=== PATIENT | male | born 1970 | race Caucasian/White ===

== ENCOUNTER 2022-09-04 04:30 | Emergency (ER) | payer BC ==
[2022-09-04 04:38] VITALS: TEMP 98.6
--- NOTE | 2022-09-04 04:52 | ED ---
General Adult HPI - General Source: patient, EMS Mode of arrival: EMS Limitations: no limitations <Ghulam Beckford - Last Filed: 09/04/22 06:26> <Tye Escobar - Last Filed: 09/04/22 09:33> - General Chief complaint: Extremity Injury, Lower Stated complaint: Right Knee Infection Time Seen by Provider: 09/04/22 04:46 - History of Present Illness Initial comments: Dictation was produced using [employer] dictation software. please excuse any grammatical, word or spelling errors. Chief Complaint: 52-year-old male sent in from outside hospital for concerns of septic arthritis History of Present Illness: Is 52-year-old male transferred from [facility]. Patient presents with acute knee pain. States that his symptoms began in the middle the night while he was sleeping. Patient has any fever or chills. Denies any history of gout. Denies any history of septic joint. He was seen at [facility] where he was evaluated. According to Dr. Plata. They did not have labs available to do a stat if fluid analysis. Patient is transferred to our hospital by request of the patient. They did not tap the joint and started sent the patient to us. Patient is a history of diabetes. States that his pain significantly resolved after having been given Dilaudid. The ROS documented in this emergency department record has been reviewed and confirmed by me. Those systems with pertinent positive or negative responses have been documented in the HPI. All other systems are other negative and/or noncontributory. (Ghulam Beckford) - Related Data Previous Rx's Medication Instructions Recorded Colchicine 0.6 mg PO ONCE #1 capsule 09/04/22 Allergies Allergy/AdvReac Type Severity Reaction Status Date / Time No Known Allergies Allergy Verified 09/04/22 06:02 Review of Systems ROS Other: All systems not noted in ROS Statement are negative. <Ghulam Beckford - Last Filed: 09/04/22 06:26> ROS Other: All systems not noted in ROS Statement are negative. <Tye Escobar - Last Filed: 09/04/22 09:33> ROS Statement: Those systems with pertinent positive or pertinent negative responses have been documented in the HPI. Past Medical History Past Medical History: Diabetes Mellitus, Neurologic Disorder History of Any Multi-Drug Resistant Organisms: None Reported Past Psychological History: No Psychological Hx Reported Smoking Status: Never smoker Past Alcohol Use History: Occasional Past Drug Use History: None Reported <Ghulam Beckford - Last Filed: 09/04/22 06:26> General Exam Limitations: no limitations <Ghulam Beckford - Last Filed: 09/04/22 06:26> - General Exam Comments Initial Comments: PHYSICAL EXAM: General Impression: Alert and oriented x3, not in acute distress HEENT: Normocephalic atraumatic, extra-ocular movements intact, pupils equal and reactive to light bilaterally, mucous membranes moist. Cardiovascular: Heart regular rate and rhythm Chest: Able to complete full sentences, no retractions, no tachypnea Musculoskeletal: Pulses present and equal in all extremities, no peripheral edema Right knee: Warm mildly erythematous area able to bend patient's knee with some pain Motor: no focal deficits noted Neurological: CN II-XII grossly intact, no focal motor or sensory deficits noted Skin: Intact with no visualized rashes Psych: Normal affect and mood (Ghulam Beckford) Course Vital Signs 09/04/22 09/04/22 04:32 06:22 Temperature 98.6 F Pulse Rate 96 88 Respiratory 16 16 Rate Blood Pressure 166/93 135/81 O2 Sat by Pulse 97 97 Oximetry Procedures - Joint Aspiration/Injection Consent Obtained: verbal consent, emergent situation Indications: R/O septic arthritis Side of Body: right Joint Aspirated: knee Ultrasound Guidance: No Skin Prep: Chlorhexidine Needle Size Used: 18G Syringe Size Used: 10cc Fluid Obtained: turbid Total Fluid Obtained (mls): 4 Patient Tolerated Procedure: well <Ghulam Beckford - Last Filed: 09/04/22 06:26> Medical Decision Making <Ghulam Beckford - Last Filed: 09/04/22 06:26> - Lab Data Result diagrams: 09/04/22 06:15 09/04/22 06:15 <Tye Escobar - Last Filed: 09/04/22 09:33> - Medical Decision Making Was pt. sent in by a medical professional or institution (, PA, [employer], urgent care, hospital, or longterm...) When possible be specific @ -From outside hospital Did you speak to anyone other than the patient for history (EMS, parent, family, police, friend...)? What history was obtained from this source @ -Some history obtained from transferring physician, Dr. Plata Did you review nursing and triage notes (agree or disagree)? Why? @ -I reviewed and agree with nursing and triage notes Were old charts reviewed (outside hosp., previous admission, EMS record, old EKG, old radiological studies, urgent care reports/EKG's, longterm records)? Report findings @ -No old charts were reviewed Differential Diagnosis (chest pain, altered mental status, abdominal pain women, abdominal pain men, vaginal bleeding, musculoskeletal, weakness, fever, dyspnea, syncope, headache, dizziness, GI bleed, back pain, seizure, CVA, palpatations, mental health)? @ -Differential Musculoskeletal: Muscular strain, contusion, ligament sprain, fracture, arthritis, septic arthrit is, bursitis, cellulitis, muscle spasm, nerve compression, DVT, arterial occlusion, herpes zoster, electrolyte abnormality, tumor.... This is not meant to be in all inclusive list EKG interpreted by me (3pts min.). @ -None done X-rays interpreted by me (1pt min.). @ -None done CT interpreted by me (1pt min.). @ -None done U/S interpreted by me (1pt. min.). @ -None done What testing was considered but not performed or refused? (CT, X-rays, U/S, labs)? Why? @ -None What meds were considered but not given or refused? Why? @ -None Did you discuss the management of the patient with other professionals (professionals i.e. , PA, [employer], lab, RT, psych nurse, social insurance analyst, care tech, teacher, transit police officer, patient case coordinator)? Give summary @ -No Was smoking cessation discussed for >3mins.? @ -No Was critical care preformed (if so, how long)? @ -No Were there social determinants of health that impacted care today? How? (Homelessness, low income, unemployed, alcoholism, drug addiction, transportation, low edu. Level, literacy, decrease access to med. care, fci, rehab)? @ -No Was there de-escalation of care discussed even if they declined (Discuss DNR or withdrawal of care, Hospice)? DNR status @ -No What co-morbidities impacted this encounter? (DM, HTN, Smoking, COPD, CAD, Cancer, CVA, ARF, Chemo, Hep., AIDS, mental health diagnosis, sleep apnea, morbid obesity)? @ -None Was patient admitted / discharged? Hospital course, mention meds given and route, prescriptions, significant lab abnormalities, going to OR and other pertinent info. @ -52-year-old male transferred from [facility] for concerns of septic knee. Patient states that his knee pain has been ongoing for several hours. Started hurting during sleep. Patient has any constitutional symptoms. Vital signs are stable. Physical examination shows mildly erythematous knee. Not significantly symptomatic. Knee is able to be manipulated without any significant pain. Nonetheless knee aspiration was performed showing mildly cloudy fluid not obviously purulent. Pending lab analysis. No obvious indication for antibiotic administration at this time. Undiagnosed new problem with uncertain prognosis? @ -No Drug Therapy requiring intensive monitoring for toxicity (Heparin, Nitro, Insulin, Cardizem)? @ -No Were any procedures done? @ -No Diagnosis/symptom? Acute, or Chronic, or Acute on Chronic? Uncomplicated (without systemic symptoms) or Complicated (systemic symptoms)? @ -1. Acute knee pain Side effects of treatment? @ -No Exacerbation, Progression, or Severe Exacerbation? @ -No Poses a threat to life or bodily function? How? (Chest pain, [place], [place], pneumonia, PE, COPD, DKA, ARF, appy, cholecystitis, CVA, Diverticulitis, Homicidal, Suicidal, threat to staff... and all critical care pts) @ -No Patient care signed out to Dr. Escobar at 7:00 AM (Ghulam Beckford) Was patient admitted / discharged? Hospital course, mention meds given and route, prescriptions, significant lab abnormalities, going to OR and other pertinent info. @ - I spoke with Elidia Judd physician speech and language assistant at [facility] she came over to see the patient she tapped the knee and felt the patient had gout and sent the patient home with a knee immobilizer and I will be prescribing closing. Undiagnosed new problem with uncertain prognosis? @ -No Drug Therapy requiring intensive monitoring for toxicity (Heparin, Nitro, Insu simon, Cardizem)? @ -No Were any procedures done? @ -No Diagnosis/symptom? @ -Gouty arthritis Acute, or Chronic, or Acute on Chronic? @ -Acute Uncomplicated (without systemic symptoms) or Complicated (systemic symptoms)? @ -Uncomplicated Side effects of treatment? @ -No Exacerbation, Progression, or Severe Exacerbation? @ -No Poses a threat to life or bodily function? How? (Chest pain, [place], [place], pneumonia, PE, COPD, DKA, ARF, appy, cholecystitis, CVA, Diverticulitis, Homicidal, Suicidal, threat to staff... and all critical care pts) @ -No (Tye Escobar) - Lab Data Lab Results 09/04/22 09/04/22 Range/Units 06:15 06:15 WBC 9.4 (3.8-10.6) k/uL RBC 5.02 (4.30-5.90) m/uL Hgb 15.8 (13.0-17.5) gm/dL Hct 48.4 (39.0-53.0) % MCV 96.3 (80.0-100.0) fL MCH 31.4 (25.0-35.0) pg MCHC 32.6 (31.0-37.0) g/dL RDW 13.3 (11.5-15.5) % Plt Count 265 (150-450) k/uL MPV 6.9 Neutrophils % 69 % Lymphocytes % 20 % Monocytes % 7 % Eosinophils % 2 % Basophils % 0 % Neutrophils # 6.5 (1.3-7.7) k/uL Lymphocytes # 1.9 (1.0-4.8) k/uL Monocytes # 0.6 (0-1.0) k/uL Eosinophils # 0.2 (0-0.7) k/uL Basophils # 0.0 (0-0.2) k/uL ESR 7 (0-15) mm/hr Sodium 136 L (137-145) mmol/L Potassium 4.8 (3.5-5.1) mmol/L Chloride 103 (98-107) mmol/L Carbon Dioxide 24 (22-30) mmol/L Anion Gap 9 mmol/L BUN 15 (9-20) mg/dL Creatinine 0.85 (0.66-1.25) mg/dL Est GFR (CKD-EPI)AfAm >90 (>60 ml/min/1.73 sqM) Est GFR (CKD-EPI)NonAf >90 (>60 ml/min/1.73 sqM) Glucose 146 H (74-99) mg/dL Calcium 9.0 (8.4-10.2) mg/dL C-Reactive Protein 2.3 H (<1.0) mg/dL Disposition <Ghulam Beckford - Last Filed: 09/04/22 06:26> Is patient prescribed a controlled substance at d/c from ED?: No Time of Disposition: 09:30 <Tye Escobar - Last Filed: 09/04/22 09:33> Clinical Impression: Gouty arthritis of right knee Disposition: HOME SELF-CARE Condition: Good Instructions (If sedation given, give patient instructions): Gout (ED) Prescriptions: Colchicine 0.6 mg PO ONCE #1 capsule Referrals: Gaston Kay MD [STAFF PHYSICIAN] - 1-2 days
[2022-09-04] MEDS ORDERED: MORPHINE SULFATE 4 MG/ML SYRINGE IV STA (06:02)
[2022-09-04 06:26] LABS: Basophils % (A) 0 %; Eosinophils # (A) 0.2 k/uL (0-0.7); Eosinophils % (A) 2 %; HCT 48.4 % (39.0-53.0); HGB 15.8 gm/dL (13.0-17.5); Lymphocytes # (A) 1.9 k/uL (1.0-4.8); Lymphocytes % (A) 20 %; MCH 31.4 pg (25.0-35.0); MCHC 32.6 g/dL (31.0-37.0); MCV 96.3 fL (80.0-100.0); Mean Platelet Volume 6.9; Monocytes # (A) 0.6 k/uL (0-1.0); Monocytes % (A) 7 %; Neutrophils # (A) 6.5 k/uL (1.3-7.7); Neutrophils % (A) 69 %; Platelet Count 265 k/uL (150-450); RBC 5.02 m/uL (4.30-5.90); RDW 13.3 % (11.5-15.5); WBC 9.4 k/uL (3.8-10.6)
[2022-09-04 06:44] LABS: African American GFR (CKD) >90 (>60 ml/min/1.73 sqM); Anion Gap 9 mmol/L; Blood Urea Nitrogen 15 mg/dL (9-20); C Reactive Protein 2.3 mg/dL (<1.0); Carbon Dioxide 24 mmol/L (22-30); Chloride 103 mmol/L (98-107); Glucose 146 mg/dL (74-99); Non-African American GFR(CKD) >90 (>60 ml/min/1.73 sqM); Potassium 4.8 mmol/L (3.5-5.1); Sodium 136 mmol/L (137-145)
[2022-09-04 07:43] LABS: Erythrocyte Sedimentation Rate 7 mm/hr (0-15)
[2022-09-04] MEDS ORDERED: LIDOCAINE 1% INJ 10MG/ML (30 ML VIAL-PF) SQ ONE (09:14)
[2022-09-04] MEDS ORDERED: COLCHICINE 0.6 MG EACH PO STA (09:36)
[2022-09-04 10:05] VITALS: BP 134/81; PULSE 82; RESP 18
[2022-09-04 11:49] LABS: Appearance,BF Bloody; Nucleated Cells, Body Fluid 19300 /uL; RBC, Body Fluid 33700 /uL
[2022-09-04 11:58] LABS: Mononuclear WBC,Body Fluid 7 %; Polynuclear WBC,Body Fluid 93 %; Total Cells Counted,Body Fluid 100
--- NOTE | 2022-09-04 13:19 | P.CNOR ---
History of Present Illness - [facility] Consult date: 09/04/22 Consult reason: joint pain (Right knee.) History of present illness: Niels presents today to the emergency Department after transfer from [facility] for right knee pain and swelling. The patient reportedly woke up last evening with severe pain in his right knee. He reports no fever or chills. He states that the pain came on very suddenly. He is also noticed some swelling. He was initially seen at [facility] and attempted to aspirate the knee which was unsuccessful. He was transferred to [facility] for further evaluation. Aspiration was performed this morning. However, the fluid was not in the correct tubes for testing. We're consulted for orthopedic evaluation. Past Medical History Past Medical History: Diabetes Mellitus, Neurologic Disorder History of Any Multi-Drug Resistant Organisms: None Reported Past Psychological History: No Psychological Hx Reported Smoking Status: Never smoker Past Alcohol Use History: Occasional Past Drug Use History: None Reported Medications and Allergies Home Medications Medication Instructions Recorded Confirmed Type Colchicine 0.6 mg PO ONCE #1 capsule 09/04/22 Rx Allergies Allergy/AdvReac Type Severity Reaction Status Date / Time No Known Allergies Allergy Verified 09/04/22 06:02 Physical Examination This is a pleasant 52-year-old male in no acute distress. He is alert and oriented 3. Exam of the right knee reveals a +1-2 effusion. There is no erythema or ecchymosis. He has limited range of motion of the knee secondary to pain. He has full ankle motion without difficulty or pain. Neurovascular status to the lower extremity is intact. Results - Labs Labs: Abnormal Lab Results - Last 24 Hours (Table) 09/04/22 Range/Units 06:15 Sodium 136 L (137-145) mmol/L Glucose 146 H (74-99) mg/dL C-Reactive Protein 2.3 H (<1.0) mg/dL H & H 09/04/22 Range/Units 06:15 Hgb 15.8 (13.0-17.5) gm/dL Hct 48.4 (39.0-53.0) % Result Diagrams: 09/04/22 06:15 09/04/22 06:15 Assessment and Plan (1) Effusion, right knee Status: Acute Code(s): M25.461 - EFFUSION, RIGHT KNEE SNOMED Code(s): 506622350947649 (2) Gouty arthritis of right knee Status: Acute Code(s): M10.9 - GOUT, UNSPECIFIED SNOMED Code(s): 958097803397273 Plan: The clinical findings are discussed with the patient. The right knee is aspirated using sterile technique. I obtained approximately 15 cc of hazy and slightly blood-tinged fluid. The fluid was sent to the lab for culture and sensitivity, cell count and crystal identification. It is recommended the patient be placed on colchicine for gout. He is unable to take Indocin secondary to history of kidney problems. He is also placed into a knee immobilizer. He is to follow-up in our office on Thursday for further evaluation.
[2022-09-04 17:37] LABS: Synovial Fld Crystals None Seen (None Seen)
== END 2022-09-04 10:05 | disposition home or self-care (01) ==
LOC: EC 04:30
DX: M10.061 Idiopathic gout, right knee (principal); E11.9 Type 2 diabetes mellitus without complications
CPT/HCPCS: 36415; 89060; 80048; 85652; 89050; 85025; 86140; 87070; 87205; 99284; 96374; 20610; J2270; J2001